=== PATIENT | male | born 2000 | race Caucasian/White ===

== ENCOUNTER 2023-12-12 00:21 | Day surgery (SDC) | payer OTHER, SELFPAY ==
[2023-11-29 14:03] VITALS: BMI 24.3
--- NOTE | 2023-11-29 15:10 | PC.NURSE ---
pt emailed colon prep instructions per request. confirmation rec'd.
--- NOTE | 2023-12-09 09:53 | SUR.PREOP ---
Patient called regarding upcoming procedure. Reviewed preop instructions, appointment times, and procedure prep.
--- NOTE | 2023-12-12 11:03 | PM.HPGS ---
History of Present Illness History of Present Illness Consent: Risks, benefits, and alternatives have been discussed and questions answered. Patient agrees to proceed with procedure. Chief complaint: Diarrhea Narrative: Benigno Rand is a 23 year old male here with loose stools for 5 years, no weight loss, few times used imodium, never had colonoscopy Review of Systems Constitutional: Constitutional: Denies headache(s) and Denies weakness Eyes: Eyes: Denies blurry vision ENT: Reports Normal hearing present, Denies headache(s) and Denies neck pain Cardiovascular: Cardiovascular: Denies chest pain and Denies dyspnea Respiratory: Respiratory: Denies dyspnea Gastrointestinal: Gastrointestinal: Reports no additional gastrointestinal complaints Genitourinary: Genitourinary: Denies dysuria Musculoskeletal: Musculoskeletal: Denies neck pain Integumentary/Breasts: Skin/Breast: Denies dry skin Neurologic: Reports Normal hearing present, Denies headache(s) and Denies weakness Psychiatric: Psychiatric: Denies anxiety Endocrine: Endocrine: Denies change in body appearance Hematologic/Lymphatic: Hematologic/Lymphatic: Denies easy bleeding Allergic/Immunologic: Allergic/Immunologic: Denies urticaria PMF Past Medical History Medical History (Updated 12/12/23 @ 11:04 by Ruy Meraz MD) Diarrhea Family History Family History (Updated 10/12/23 @ 08:08 by Katy Yuen CMA) Father Asthma Mother Breast cancer Sibling Asthma Grandparent Hypertension Heart disease Cerebrovascular accident Social History Social History (Updated 10/12/23 @ 08:07 by Katy Yuen CMA) Smoking status: Light tobacco smoker Tobacco type: cigars Additional smoking assessment comments: occasional cigar Alcohol intake: current Alcohol use details: socially Substance use: never Substance use type: does not use Do You Feel Safe in your Home?: No Lack of Transportation: No Lack of Food: Never True Current Housing: I Have Housing Concerned About Future Housing: No Difficulty Paying Gas/Electric Bills: No Difficulty Paying for Meds: No Currently Unemployed: No Education: Bachelor's Degree Difficulty w/ Childcare or Family Care: No Living arrangements: with family Spiritual care concerns: No Meds Home Medications and Allergies Home Medications Medication Instructions Recorded Confirmed Type paroxetine HCl 20 mg tablet 20 mg PO DAILY 10/12/23 11/29/23 History Allergies Allergy/AdvReac Type Severity Reaction Status Date / Time No Known Allergies Allergy Verified 11/29/23 14:18 Exam Const: General: comfortable and no acute distress HENMT: Face/Nose/Sinus: Normal nares present Eyes: General: appearance normal, both eyes and all related structures Neck: Neck: no JVD Resp: Auscultation: clear to auscultation bilaterally Cardio: Rate: regular rate Rhythm: regular rhythm GI: Inspection: non-distended GI Palp: Yes Soft to palpation Skin: General skin exam: normal color Neuro: General: gait normal Speech: normal speech Extrem: General: normal to inspection Psych: Mental Status: mental status grossly normal Assessment and Plan Assessment and plan (1) Diarrhea: Code(s): R19.7 - Diarrhea, unspecified Status: Acute Assessment and Plan: colonoscopy with random bx
[2023-12-12] MEDS: LACTATED RINGERS 1,000 ML 150 ML IV CONT (11:08)
[2023-12-12 11:10] VITALS: BP 112/60; PULSE 91; RESP 16; TEMP 36.4; O2SAT 99
--- NOTE | 2023-12-12 11:10 | P.PNAN_ITS ---
Anes - Initial Pre Proc Eval Procedure: Operation Date: 12/12/23 12:30 Proposed Procedures p Colonoscopy - Ruy Meraz MD Date/Time: 12/12/23 11:10 Surgeon: Ruy Meraz MD Pre Op Diagnosis: Diarrhea Patient Data Age: 23 Gender: M Height: 2.01 m Weight: 97.7 kg Allergies Allergy/AdvReac Type Severity Reaction Status Date / Time No Known Allergies Allergy Verified 12/12/23 11:09 Home Medications Medication Instructions Recorded Confirmed Type paroxetine HCl 20 mg tablet 20 mg PO DAILY 10/12/23 11/29/23 History Patient hx anesthesia problems: none Family hx anesthesia problems: none Results Review: All pre-operative results and documents have been reviewed as part of the pre- operative evaluation. [facility] Past Medical History Medical History (Updated 12/12/23 @ 11:04 by Ruy Meraz MD) Diarrhea Family History Family History (Updated 10/12/23 @ 08:08 by Katy Yuen CMA) Father Asthma Mother Breast cancer Sibling Asthma Grandparent Hypertension Heart disease Cerebrovascular accident Social History Social History (Updated 10/12/23 @ 08:07 by Katy Yuen CMA) Smoking status: Light tobacco smoker Tobacco type: cigars Additional smoking assessment comments: occasional cigar Alcohol intake: current Alcohol use details: socially Substance use: never Substance use type: does not use Do You Feel Safe in your Home?: No Lack of Transportation: No Lack of Food: Never True Current Housing: I Have Housing Concerned About Future Housing: No Difficulty Paying Gas/Electric Bills: No Difficulty Paying for Meds: No Currently Unemployed: No Education: Bachelor's Degree Difficulty w/ Childcare or Family Care: No Living arrangements: with family Spiritual care concerns: No Anes - Eval Final PreProcedure Day of Procedure 12/12/23 11:10 Patient weight: normal Heart: regular rate and rhythm Lungs: clear to auscultation Airway: Mallampati scale class II Neurological: alert and oriented Last oral intake: >/= 8 hours ASA classification: II Emergent: no Anesthetic plan: proceed Anesthesia type and monitoring: general GIVS and standard monitoring Results Review: All pre-operative results and documents have been reviewed as part of the pre-operative evaluation. Informed Consent: The patient's anesthetic plan and its attendant risks and benefits were discussed with the patient/family/POA. Questions were solicited and answers provided to the satisfaction of the patient/family/POA.
[2023-12-12 11:30] VITALS: BP 97/57; PULSE 77; RESP 17; O2SAT 99
[2023-12-12 11:40] VITALS: BP 112/55; PULSE 71; RESP 17; O2SAT 100
[2023-12-12 11:50] VITALS: BP 119/64; PULSE 62; RESP 23; O2SAT 100
== END 2023-12-12 11:59 | disposition home or self-care (01) ==
PROVIDERS: PCP Internal Medicine; Visit Provider Internal Medicine Gastroenterology
PROC: 0DJD8ZZ Inspection of Lower Intestinal Tract, Via Natural or Artificial Opening Endoscopic (ICD-10-PCS; CPT 45378; principal; 2023-12-12 12:30)
DX: K52.832 Lymphocytic colitis (principal); K64.8 Other hemorrhoids; F17.290 Nicotine dependence, other tobacco product, uncomplicated; Z80.3 Family history of malignant neoplasm of breast; Z82.49 Family history of ischemic heart disease and other diseases of the circulatory system
CPT/HCPCS: 45380; 88305; J2704; J7120